=== PATIENT | female | born 1990 | race Caucasian/White ===

== ENCOUNTER 2021-08-07 19:20 | Inpatient (IN) | payer OTHER ==
[2021-08-07 20:19] LABS: HCT 35.7 % (37.0-47.0); HGB 11.3 g/dl (12.5-16.0); MCH 25.9 pg (25.0-31.0); MCHC 31.7 g/dL (32.0-36.0); MCV 81.7 fL (78.0-100.0); MPV 9.9 fL (6.0-9.5); RBC 4.37 M/uL (4.20-5.40); RDW 15.2 % (11.5-14.0); WBC 12.3 K/uL (4.0-10.5)
[2021-08-07 20:20] LABS: BILIRUBIN NEGATIVE (NEGATIVE); BLOOD TRACE-INTACT Ery/uL (NEGATIVE); COLOR YELLOW (YELLOW); GLUCOSE (U) NORMAL (NORMAL); LEUKOCYTES NEGATIVE Leu/uL (NEGATIVE); NITRITE NEGATIVE (NEGATIVE); PROTEIN TRACE (LOW) mg/dL (NEGATIVE); SPECIFIC GRAVITY 1.025 (1.001-1.030)
[2021-08-07 20:21] LABS: CLARITY SLIGHTLY HAZY (CLEAR)
[2021-08-07 20:31] LABS: BACTERIA 1+; SQUAMOUS EPITHELIAL CELLS 20-50; URINARY WBC RARE
[2021-08-07 20:32] LABS: AMPHETAMINES NEGATIVE (NEGATIVE); BARBITURATES NEGATIVE (NEGATIVE); ECSTASY (MDMA) NEGATIVE (NEGATIVE); MARIJUANA (THC) NEGATIVE (NEGATIVE); METHADONE NEGATIVE (NEGATIVE); OPIATES NEGATIVE (NEGATIVE); OXYCODONE NEGATIVE (NEGATIVE)
[2021-08-08 05:43] LABS: BILIRUBIN NEGATIVE (NEGATIVE); BLOOD TRACE-INTACT Ery/uL (NEGATIVE); CLARITY CLEAR (CLEAR); COLOR YELLOW (YELLOW); GLUCOSE (U) NORMAL (NORMAL); LEUKOCYTES NEGATIVE Leu/uL (NEGATIVE); NITRITE NEGATIVE (NEGATIVE); PROTEIN NEGATIVE (NEGATIVE); SPECIFIC GRAVITY 1.025 (1.001-1.030)
[2021-08-08 05:55] LABS: URINARY RBC RARE; URINARY WBC RARE
[2021-08-09 06:43] LABS: HCT 27.8 % (37.0-47.0); HGB 8.6 g/dl (12.5-16.0); MCH 25.9 pg (25.0-31.0); MCHC 30.9 g/dL (32.0-36.0); MCV 83.7 fL (78.0-100.0); MPV 9.6 fL (6.0-9.5); RBC 3.32 M/uL (4.20-5.40); RDW 15.6 % (11.5-14.0); WBC 11.2 K/uL (4.0-10.5)
[2021-08-10] MEDS ORDERED: IBUPROFEN800 MG PO (10:18)
[2021-08-10] MEDS ORDERED: COLACE100 MG PO (10:19)
[2021-08-10] MEDS ORDERED: PRENATAL FORMU1 EACH PO (10:20)
[2021-08-10] MEDS ORDERED: FEOSOL325 MG PO (10:21)
== END 2021-08-10 11:03 | disposition home or self-care (01) | DRG 787 ==
LOC: FOD 19:20 → FOB 19:21 → FOD 08-08 03:38 → FOB 08-08 03:39
PROVIDERS: ADMIT Obstetrics & Gynecology
PROC: 10D00Z1 Extraction of Products of Conception, Low, Open Approach (ICD-10-PCS; 2021-08-08)
PROC: 3E0334Z Introduction of Serum, Toxoid and Vaccine into Peripheral Vein, Percutaneous Approach (ICD-10-PCS; principal; 2021-08-09)
DX: O36.63X0 Maternal care for excessive fetal growth, third trimester, not applicable or unspecified (principal); D62 Acute posthemorrhagic anemia; O99.354 Diseases of the nervous system complicating childbirth; Z37.0 Single live birth; Z3A.39 39 weeks gestation of pregnancy; O34.211 Maternal care for low transverse scar from previous cesarean delivery; O24.429 Gestational diabetes mellitus in childbirth, unspecified control; Z23 Encounter for immunization; O40.3XX0 Polyhydramnios, third trimester, not applicable or unspecified; O99.02 Anemia complicating childbirth; O99.344 Other mental disorders complicating childbirth; F41.9 Anxiety disorder, unspecified; F32.A Depression, unspecified; O26.893 Other specified pregnancy related conditions, third trimester; O69.81X0 Labor and delivery complicated by cord around neck, without compression, not applicable or unspecified; G43.909 Migraine, unspecified, not intractable, without status migrainosus; O99.52 Diseases of the respiratory system complicating childbirth; J45.909 Unspecified asthma, uncomplicated; Z67.11 Type A blood, Rh negative
CPT/HCPCS: 36415; 80305; 81001; 82947; 85461; 86850; 86900; 86901; J0690; J1170; J1885; J2250; J2274; J2300; J2370; J2405; J2790; J3010; J7120